=== PATIENT | male | born 1975 | race Hispanic/Latino ===

== ENCOUNTER → 2020-05-31 06:29 | Outpatient (CLI) | payer OTHER, SELFPAY ==
--- NOTE | 2020-05-31 06:34 | DI.MRI.S_ITS ---
PROCEDURE: MR WRIST RT WO CON INDICATIONS: Pain in unspecified wrist TECHNIQUE: Noncontrast coronal proton density fast spin echo and T2 fast spin echo with fat saturation; coronal 3-D gradient echo, axial T1 spin echo and T2 fast spin echo with fat saturation, sagittal T1 spin echo through the wrist. COMPARISON: None. FINDINGS: Image quality: Excellent. Bones and cartilage: The carpal bones are normally aligned. No bone marrow contusions or fractures. No evidence for avascular necrosis. Mild osteoarthritic changes involving radiocarpal joint and ulnar carpal joint is seen with joint space narrowing and subchondral sclerosis. Carpal ligaments: The scapholunate and lunotriquetral ligaments appear intact. In the absence of intra-articular contrast, the extrinsic carpal ligaments are not well identified. On sagittal images, the pisohamate ligament appears intact. Triangular fibrocartilage complex: The triangular fibrocartilage appears intact. The adjacent meniscal homolog appears normal in the absence of intra-articular contrast. The extensor carpi ulnaris tendon is normal in location and morphology. Tendons and soft tissues: The carpal tunnel structures appear normal, including the median nerve. The ulnar nerve appears normal within Guyon's canal. All six extensor tendon compartments demonstrate normal morphology, without pathologic tendon sheath fluid. No soft tissue ganglion cysts. IMPRESSION: 1. No gross signal abnormality is seen in visualized portion of median nerve and ulnar nerve. 2. Mild wrist joint osteoarthritis. No marrow edema. No fracture or dislocation. No suspicious intraosseous lesion. 3. Wrist tendons and ligaments are grossly intact. Triangular fibrocartilage complex is grossly intact. Dictated by: Tariq Hernandez M.D. on 05/31/2020 at 11:53 Approved by: Tariq Hernandez M.D. on 05/31/2020 at 11:57
--- NOTE | 2020-05-31 06:34 | DI.MRI.S_ITS ---
PROCEDURE: MR WRIST LT WO CON INDICATIONS: Pain in unspecified wrist TECHNIQUE: Noncontrast coronal proton density fast spin echo and T2 fast spin echo with fat saturation; coronal 3-D gradient echo, axial T1 spin echo and T2 fast spin echo with fat saturation, sagittal T1 spin echo through the wrist. COMPARISON: [facility], MR, MR WRIST RT WO CON, 05/31/2020, 7:14. FINDINGS: Image quality: Excellent. Bones and cartilage: Moderate radiocarpal joint osteoarthritic changes are seen with joint space narrowing and subchondral sclerosis. Subcortical cyst formation involving proximal and radial portion of lunate and proximal portion of scaphoid is seen. Mild edema involving radial portion of lunate surrounding the above-mentioned subcortical cystic area with subtle overlying cortical erosion. No other area of marrow signal abnormality or suspicious intraosseous lesion. Carpal ligaments: There is suggestion of sprain/low to moderate grade intrasubstance partial-thickness tear involving scapholunate ligament with attenuated appearing ligament. The lunotriquetral ligament appears intact. In the absence of intra-articular contrast, the extrinsic carpal ligaments are not well identified. On sagittal images, the pisohamate ligament appears intact. Triangular fibrocartilage complex: The triangular fibrocartilage appears intact. The adjacent meniscal homolog appears normal in the absence of intra-articular contrast. The extensor carpi ulnaris tendon is normal in location and morphology. Tendons and soft tissues: The carpal tunnel structures appear normal, including the median nerve. The ulnar nerve appears normal within Guyon's canal. All six extensor tendon compartments demonstrate normal morphology, without pathologic tendon sheath fluid. 7 x 3 x 5 mm cystic area over volar aspect of radiocarpal joint space at the level of proximal scaphoid is seen and likely represent tiny ganglion cyst. IMPRESSION: 1. Osteoarthritic changes involving radiocarpal joint as described above. Nonspecific subcortical cyst formation involving proximal and radial portion of lunate and proximal portion of scaphoid with mild edema seen radial portion of the lunate which may represent changes related to osteoarthritis versus subtle erosion secondary to inflammatory arthropathy, suggest clinical correlation. No other area of marrow signal abnormality. No fracture or dislocation. 2. Suggestion of sprain/low to moderate grade partial-thickness tear involving scapholunate ligament. Lunotriquetral ligament is intact. 3. Extensor and flexor tendons are intact. New line 4. No gross signal abnormality is seen in median and ulnar nerves. 4. Suggestion of a tiny 7 x 3 x 5 mm ganglion cyst over volar aspect of radiocarpal joint as above. Dictated by: Tariq Hernandez M.D. on 05/31/2020 at 14:16 Approved by: Tariq Hernandez M.D. on 05/31/2020 at 15:15
== END ==
PROVIDERS: Referring Provider Internal Medicine; Visit Provider Internal Medicine
DX: M25.531 Pain in right wrist (principal); M25.532 Pain in left wrist; M19.031 Primary osteoarthritis, right wrist
CPT/HCPCS: 73221

== ENCOUNTER → 2020-06-05 10:53 | Outpatient (CLI) | payer OTHER, SELFPAY ==
--- NOTE | 2020-06-05 10:55 | DI.MRI.S_ITS ---
PROCEDURE: MR ELBOW LT W CON INDICATIONS: PAIN IN BILAT ELBOWS TECHNIQUE: Noncontrast coronal proton density fast spin echo and T2 fast spin echo with fat saturation, axial and sagittal T1 spin echo and T2 fast spin echo with fat saturation through the elbow. COMPARISON: [facility], MR, MR ELBOW RT WO CON, 06/05/2020, 11:11. FINDINGS: Image quality: Excellent. Lateral structures: The lateral ulnar collateral ligament and radial collateral ligament both appear intact. The overlying common extensor tendon also appears normal. Medial structures: The ulnar collateral ligament appears intact. Mild tendinosis involving common flexor tendon origin at medial epicondyle with mild overlying soft tissue edema. Enlarged ulnar nerve with mild surrounding edema and T2 hyperintense signal within the cubital tunnel is seen, consistent with neuritis. Anterior structures: The biceps and brachialis tendons both appear intact as they insert onto the proximal radius and ulna, respectively. No bicipitoradial bursal fluid. The median and radial neurovascular bundles appear normal; no focal muscle atrophy to suggest nerve impingement. Posterior structures: The conjoint triceps tendon from the long and lateral heads appears intact. The medial head of the triceps tendon also appears normal, with direct muscle insertion onto the olecranon. No olecranon bursal fluid. Bone and cartilage: No bone marrow contusions or fractures. No osteochondral injuries. IMPRESSION: 1. Enlarged ulnar nerve with increased T2 hyperintense signal and mild adjacent edema within cubital tunnel consistent with neuritis. 2. Mild tendinosis involving common extensor tendon origin. Underlying medial collateral ligaments are intact. Lateral elbow tendons and ligaments are intact. 3. No marrow edema. No fracture or dislocation. No significant joint effusion. Dictated by: Tariq Hernandez M.D. on 06/06/2020 at 9:26 Approved by: Tariq Hernandez M.D. on 06/06/2020 at 10:12
--- NOTE | 2020-06-05 10:56 | DI.MRI.S_ITS ---
PROCEDURE: MR ELBOW RT WO CON INDICATIONS: PAIN IN BILAT ELBOWS TECHNIQUE: Noncontrast coronal proton density fast spin echo and T2 fast spin echo with fat saturation, axial and sagittal T1 spin echo and T2 fast spin echo with fat saturation through the elbow. COMPARISON: None. FINDINGS: Image quality: Excellent. Lateral structures: The lateral ulnar collateral ligament and radial collateral ligament both appear intact. The overlying common extensor tendon also appears normal. Medial structures: The ulnar collateral ligament appears intact. There is tendinosis involving common flexor tendon origin at its insertion on medial epicondyle. The ulnar nerve appears slightly enlarged with increased T2 signal within the cubital tunnel. Anterior structures: The biceps and brachialis tendons both appear intact as they insert onto the proximal radius and ulna, respectively. No bicipitoradial bursal fluid. The median and radial neurovascular bundles appear normal; no focal muscle atrophy to suggest nerve impingement. Posterior structures: The conjoint triceps tendon from the long and lateral heads appears intact. The medial head of the triceps tendon also appears normal, with direct muscle insertion onto the olecranon. No olecranon bursal fluid. Bone and cartilage: No bone marrow contusions or fractures. No osteochondral injuries. Osteoarthritic changes involving articulation between radial head and capitellum is seen with subcortical cyst formation in medial aspect of radial head. IMPRESSION: 1. Tendinosis involving common flexor tendon origin at its insertion on medial epicondyle. Underlying medial collateral ligaments are intact. 2. There is slight enlargement and internal T2 hyperintense signal involving ulnar nerve within cubital tunnel suggestive of neuritis. 3. Rest of the tendons and ligaments are intact. 4. Mild osteoarthritis involving articulation between radial head and capitellum as above. No fracture or dislocation. No significant joint effusion. Dictated by: Tariq Hernandez M.D. on 06/06/2020 at 9:03 Approved by: Tariq Hernandez M.D. on 06/06/2020 at 9:25
== END ==
PROVIDERS: PCP Internal Medicine; Referring Provider Internal Medicine; Visit Provider Internal Medicine
DX: M19.022 Primary osteoarthritis, left elbow (principal); M25.521 Pain in right elbow
CPT/HCPCS: 73221

== ENCOUNTER → 2023-10-14 15:42 | Outpatient (CLI) | payer OTHER, SELFPAY ==
--- NOTE | 2023-10-14 15:45 | DI.MRI.S_ITS ---
PROCEDURE: MR LUMBAR SPINE WO CON INDICATIONS: low back pain TECHNIQUE: Noncontrast sagittal T1 spin echo and T2 fast echo, sagittal STIR, and T2 fast spin echo through the lumbar spine. In cases with scoliosis, additional coronal T2 fast spin echo may be performed. COMPARISON: None. FINDINGS: Image quality: Excellent. Alignment and Curvature: There is straightening of lumbar lordosis. Minimal anterolisthesis of L5 on S1. Bone Marrow: Marrow is of normal overall signal. No acute vertebral body compression fractures. Spinal Cord: Conus medullaris terminates at the L1 level. Visualized cord demonstrates normal signal and size. Paraspinous Soft Tissues: No paravertebral masses. Intervertebral disc: Disc desiccation and height loss at L5-S1. T12-L1: No spinal canal stenosis or foraminal stenosis. Bilateral facet arthropathy and mild ligamentum flavum hypertrophy. L1-L2: No spinal canal stenosis or foraminal stenosis. Bilateral facet are and ligamentum flavum hypertrophy. L2-L3: No spinal canal stenosis or foraminal stenosis. Bilateral facet arthropathy and ligamentum flavum hypertrophy. L3-L4: No spinal canal stenosis. Mild bilateral foraminal narrowing. Bilateral facet arthropathy and ligamentum flavum hypertrophy. L4-L5: No spinal canal stenosis. [id number] left foraminal stenosis. Mild right foraminal narrowing. Bilateral facet arthropathy. L5-S1: Dorsal disc bulge mildly effaces the ventral thecal sac. No neural foraminal stenosis. Bilateral facet arthropathy. IMPRESSION: 1. No spinal canal stenosis. There is mild to moderate left foraminal stenosis at L4-L5. 2. There is straightening of lumbar lordosis. This finding can be seen in patients with muscle spasms. 3. Minimal anterolisthesis of L5 on S1. Dictated by: Ryne Hays M.D. on 10/15/2023 at 8:07 Approved by: Ryne Hays M.D. on 10/15/2023 at 8:43
== END ==
PROVIDERS: Referring Provider Physical Medicine & Rehabilitation Pain Medicine; Visit Provider Physical Medicine & Rehabilitation Pain Medicine
DX: M48.061 Spinal stenosis, lumbar region without neurogenic claudication (principal); M47.816 Spondylosis without myelopathy or radiculopathy, lumbar region; M47.817 Spondylosis without myelopathy or radiculopathy, lumbosacral region; M51.36 Other intervertebral disc degeneration, lumbar region; M54.50 Low back pain, unspecified
CPT/HCPCS: 72148